=== PATIENT | female | born 1955 | race Caucasian/White ===

== ENCOUNTER → 2016-08-28 | Outpatient (CLI) | payer BC ==
--- NOTE | 2016-08-28 09:38 | DI ---
Indication: ITS.REASON: N85.2 ENLARGED UTERUS PROCEDURE: US PELVIC NON OB W/TRANS VAG: Encounter: Initial Comparison: None FINDINGS: Transvaginal and transabdominal pelvic imaging was performed. The uterus is enlarged and measures 17 x 7.8 x 10.5 cm. The parenchyma is heterogeneous with two large fibroids. The largest is a myometrial fibroid in the left lateral region measuring 7.5 x 5.3 x 6.7 cm. An smaller posterior fundal myometrial 3.6 x 3.1 x 2.6 cm fibroid is also seen. Both demonstrate characteristic echotexture with posterior acoustic shadowing. The endometrial stripe measures 6 mm in thickness. There is no evidence of focal endometrial mass. Ovaries were not able to be seen due to overlying bowel gas. IMPRESSION: Large uterine fibroids. .
== END ==
LOC: IMA 07:46
PROVIDERS: ATTEND Family Medicine
DX: D25.1 Intramural leiomyoma of uterus (principal); N85.2 Hypertrophy of uterus

== ENCOUNTER → 2016-09-04 | Outpatient (CLI) | payer BC | LOC: WC.BC 14:56 | DX: Z12.31 Encounter for screening mammogram for malignant neoplasm of breast (principal) | CPT/HCPCS: 77063; G0202 ==